=== PATIENT | male | born 1970 | race Two or more races ===

== ENCOUNTER 2023-06-21 13:39 | Emergency (ER) | payer MEDICAID ==
[~2023-06-21] VITALS: Ht 172.7 cm; Wt 91.0 kg
[2023-06-21 14:29] VITALS: BP 114/75; PULSE 86; RESP 18; TEMP 98.3; O2SAT 98
== END 2023-06-21 17:51 | disposition home or self-care (01) ==
LOC: ER 13:40
DX: S01.81XA Laceration without foreign body of other part of head, initial encounter (principal); M50.30 Other cervical disc degeneration, unspecified cervical region; Y04.8XXA Assault by other bodily force, initial encounter; Y93.89 Activity, other specified; Y92.89 Other specified places as the place of occurrence of the external cause; Y99.8 Other external cause status
CPT/HCPCS: 70450; 72125; 99284